=== PATIENT | male | born 1970 | race Caucasian/White ===

== ENCOUNTER → 2017-09-28 08:58 | Outpatient (CLI) | payer MEDICARE, SELFPAY ==
[2017-09-28 10:07] LABS: Absolute Neutrophil Count 3.1 X10^3/uL (2.0-7.7); Basophil# 0.03 X10^3/uL; Basophil% 0.6 % (0-1); Eosinophils% 7.6 % (0-5); Hematocrit 44.9 % (40-54); Hemoglobin 14.8 g/dl (13.0-16.5); Lymphocyte % 22.8 % (19-41); Mean Corpuscular Hgb 30.7 pg (27.0-32.0); Mean Corpuscular Volume 93.2 fL (80-94); Mean Platelet Vol. 9.1 fl (6.2-12.0); Monocyte# 0.51 X10^3/uL; Monocyte% 9.7 % (0-10); Neutrophil # 3.11 X10^3/uL (2.7-7.7); Neutrophil % 59.1 % (47-70); Platelet Count 332 K/mm3 (150-450); RBC Distribution Width SD 43.3 fl (35.1-43.9); Red Blood Count 4.82 M/mm3 (4.6-6.2); White Blood Count 5.3 K/mm3 (4.4-11.0)
[2017-09-28 10:16] LABS: POSITIVE COUNT NO; POSITIVE DIFFERENTIAL NO; POSITIVE MORPHOLOGY NO
[2017-09-28 10:49] LABS: Hemoglobin A1c 7.2 % (4.2-6.3)
[2017-09-28 10:53] LABS: AST(SGOT) 15 U/L (15-37); Alanine Aminotransfer ALT/SGPT 34 U/L (16-61); Albumin, Serum 3.7 g/dL (3.2-5.0); Alkaline Phosphatase 86 U/L (45-117); Anion Gap 7 (5-15); BUN 11 mg/dL (7-18); Calcium,Total 9.3 mg/dL (8.5-10.1); Chloride 104 mmol/L (98-107); Cholesterol 125 mg/dL (200); Creatinine, Serum 0.91 mg/dL (0.70-1.30); EST Glomerular Filtration Rate 93 mL/min (>60); Est Glom Filt Rate - Afr Amer 113 mL/min (>60); Globulin 3.8 g/dL (2.2-4.2); Glucose 118 mg/dL (74-106); High Density Lipoprotein 32 mg/dL; Potassium 4.5 mmol/L (3.5-5.1); Protein, Total 7.5 g/dL (6.4-8.2); Sodium Level 140 mmol/L (136-145); T4 Free Direct 1.09 ng/dL (0.76-1.46); Thyroid Stim Hormone (TSH) 2.53 uIU/mL (0.358-3.74); Triglycerides 109 mg/dL; Very Low Density Lipoprotein 22 mg/dL (5-40)
== END ==
PROVIDERS: Family Provider Nurse Practitioner Family; PCP Nurse Practitioner Family; Visit Provider Nurse Practitioner Family
DX: I10 Essential (primary) hypertension (principal); E78.5 Hyperlipidemia, unspecified; E03.9 Hypothyroidism, unspecified; E11.9 Type 2 diabetes mellitus without complications
CPT/HCPCS: 36415; 80053; 80061; 83036; 84439; 84443; 85025

== ENCOUNTER → 2019-08-08 | Outpatient (CLI) | payer MEDICAID, SELFPAY ==
[2019-07-27 13:54] VITALS: BMI 32.5
--- NOTE | 2019-08-08 16:50 | STRESSREP_ITS ---
Stress Test Report Pharmacologic myocardial perfusion stress test. 49-year-old man with a history of previous myocardial infarction and stenting to the left anterior descending artery. Stress protocol: Resting EKG demonstrates normal sinus rhythm with a rate of 76 bpm normal intervals are noted resting blood pressures 128/80 mmHg. 0.4 mg of regadenoson was infused per usual protocol followed by rapid venous saline flush injection continuous traffic monitor specialist was performed. The maximum heart rate attained was 104 bpm which was 61% of maximum predicted heart rate the maximum workload was 1 metabolic equivalent. At rest there were no ST or T wave changes noted suggest abnormal flow reserve at peak infusion nonspecific ST-T wave changes are noted suggest abnormal flow reserve. Resting blood pressures 128/80 with a final blood pressure 130/70 mmHg. Myocardial perfusion protocol. 14.5 mCi of technetium 99m sestamibi was injected at rest. 0.4 mg of r egadenoson was infused per usual protocol peak infusion 44.5 mCi of technetium 99m sestamibi was injected stress images were obtained stress and rest images were reconstructed and compared in the short axis vertical long horizontal long axis. Gated images were also obtained Perfusion SPECT analysis: Review of the stress images demonstrate a medium size zone in the mid anterior wall extending to the apex with reduced perfusion. The resting images demonstrate improved perfusion around this area with a minimal amount in the apex which remains with reduced perfusion. The above is suggestive of anterior apical ischemia with a small area of previous apical infarct. The rest of the esquivel appear to be well perfused. Conclusion: Abnormal pharmacologic myocardial perfusion stress test with evidence of anterior apical ischemia noted. Preserved ejection fraction.
== END | disposition home or self-care (01) ==
LOC: CVS 06:14
PROVIDERS: PCP Nurse Practitioner Family; Referring Provider Physician Assistant Medical; Visit Provider Physician Assistant Medical
DX: I25.10 Atherosclerotic heart disease of native coronary artery without angina pectoris (principal)
CPT/HCPCS: 78452; 93017; A9500; A4216; J2785

== ENCOUNTER → 2019-09-02 11:45 | Outpatient (CLI) | payer MEDICARE, MEDICAID, SELFPAY ==
[2019-07-27 13:54] VITALS: BMI 32.5
[2019-09-02 12:16] LABS: Absolute Lymphocyte Count 1.52 X10^3/uL (0.83-4.51); Absolute Neutrophil Count 3.1 X10^3/uL (2.0-7.7); Basophil# 0.04 X10^3/uL; Basophil% 0.7 % (0-1); Eosinophil# 0.36 X10^3/uL; Eosinophils% 6.4 % (0-5); Hematocrit 45.6 % (40-54); Hemoglobin 15.2 g/dL (13.0-16.5); Lymphocyte # 1.52 X10^3/ul (4.0); Lymphocyte % 27.1 % (19-41); Mean Corp Hgb Conc 33.3 g/dL (32-36); Mean Corpuscular Hgb 30.4 pg (27.0-32.0); Mean Corpuscular Volume 91.2 fL (80-94); Mean Platelet Vol. 8.9 fl (6.2-12.0); Monocyte# 0.62 X10^3/uL; Monocyte% 11.1 % (0-10); NRBC Flagged by Analyzer 0 % (0-5); Neutrophil # 3.06 X10^3/uL (2.7-7.7); Neutrophil % 54.5 % (47-70); Platelet Count 285 K/mm3 (150-450); RBC Distribution Width CV 12.6 % (11.6-14.6); White Blood Count 5.6 K/mm3 (4.4-11.0)
[2019-09-02 12:37] LABS: Anion Gap 6 (5-15); BUN 11 mg/dL (7-18); BUN/Creat Ratio 11.9 RATIO (10-20); Calcium,Total 8.8 mg/dL (8.5-10.1); Chloride 104 mmol/L (98-107); Creatinine, Serum 0.92 mg/dL (0.70-1.30); EST Glomerular Filtration Rate 92 mL/min (>60); Est Glom Filt Rate - Afr Amer 111 mL/min (>60); Glucose 218 mg/dL (74-106); Potassium 4.2 mmol/L (3.5-5.1); Sodium Level 134 mmol/L (136-145)
[2019-09-17 09:20] LABS: Prothrombin Time Fingerstick 11.2 SEC (11.9-14.4)
== END ==
PROVIDERS: Physician Assistant Medical; PCP Nurse Practitioner Family; Referring Provider Internal Medicine Cardiovascular Disease; Visit Provider Internal Medicine Cardiovascular Disease
DX: I25.10 Atherosclerotic heart disease of native coronary artery without angina pectoris (principal); R94.39 Abnormal result of other cardiovascular function study
CPT/HCPCS: 36415; 36416; 80048; 85025; 85610

== ENCOUNTER → 2019-09-09 | Outpatient (CLI) | payer MEDICARE, SELFPAY ==
[2019-07-27 13:54] VITALS: BMI 32.5
--- NOTE | 2019-09-09 10:04 | RAD_ITS ---
STUDY: X-RAY CHEST REASON FOR EXAM: Male, 49 years old. CAD, abnormal stress test -- h/o heart attack TECHNIQUE: Frontal and lateral views of the chest. COMPARISON: None. FINDINGS: The lungs are clear and expanded. There is no demonstrated pleural abnormality. Normal size heart. Normal mediastinum and sandhya. Normal visualized pulmonary arteries. Normal visualized aortic arch and descending thoracic aorta. There are diffuse degenerative changes of the visualized thoracic spine. Normal visualized ribs, clavicles, and shoulders. There is no demonstrated abnormality of the visualized soft tissue structures of the upper abdomen. RAD/Chest PA and Lateral IMPRESSION: Degenerative changes, as described above. No demonstrated acute cardiopulmonary process. Electronically Signed: Yeimi Faust, at 14:23 EDT Tel , Service support ,
== END | disposition home or self-care (01) ==
PROVIDERS: PCP Nurse Practitioner Family; Referring Provider Physician Assistant Medical; Visit Provider Physician Assistant Medical
DX: I25.10 Atherosclerotic heart disease of native coronary artery without angina pectoris (principal); R94.39 Abnormal result of other cardiovascular function study
CPT/HCPCS: 71046

== ENCOUNTER 2019-09-12 08:16 | Day surgery (SDC) | payer MEDICARE, SELFPAY ==
[2019-07-27 13:54] VITALS: BMI 32.5
[2019-09-09 11:52] VITALS: BMI 34.4
[2019-09-12] VITALS (13 sets, daily range): BP systolic 138–166; BP diastolic 73–89; PULSE 69–89; RESP 16–18; TEMP 36.4–36.9; O2SAT 96–99; BMI 34.2; BMI 34.3
--- NOTE | 2019-09-12 08:56 | HP.PCM_ITS ---
History and Physical Date of Admission: 09/12/19 History of Present Illness Details: CAL CHRISTOPHER, is a 49 M who presents to the [facility] today for a heart catheterization after an abnormal stress test on 08/08/2019. He has a history of coronary artery disease, myocardial infarction with stenting to his mid LAD, distal LAD and circumflex artery. Ejection fraction at time of infarct was noted to be 30% and has improved to 60% with an echocardiogram in 2015. He also has a history of hypertension, hyperlipidemia and diabetes. He denies chest, arm, jaw, or neck discomfort. His exercise tolerance is stable. He denies symptoms of palpitations, lightheadedness, dizziness, near syncope, or syncopal episodes. He denies edema or claudication issues. He denies orthopnea, PND, fever, chills, blood in urine, blood in stool, myalgia, or unexplainable fatigue. He does acknowledge shortness of breath with exertion. This is not new or worsening. This typically resolves with rest. Intake Vital Signs: See EMR Intake Visit Reasons: [facility] Travel Freight And Passenger Agent Required: No Accompanied by: None Is patient in pain?: No Allergies Penicillins Allergy (Verified 10/26/18 12:17) Rash Medications See EMR [facility] Medical History Essential (primary) hypertension (Chronic) Mixed hyperlipidemia (Chronic) Atherosclerotic heart disease of [place] coronary artery without angina pectoris (Chronic) Old myocardial infarction (Chronic 03/20/09) COPD (chronic obstructive pulmonary disease) (Chronic) Obesity (Chronic) Type 2 diabetes mellitus (Chronic) Surgical History History of coronary artery stent placement (Resolved 03/20/09) Family History Father Myocardial infarction Mother Diabetes Hypertension Other CVA (cerebral vascular accident) Heart disease Hyperlipidemia Sudden cardiac Social History (Updated 07/27/19 @ 14:22 by YANG Astudillo) Smoking Status: Former smoker alcohol intake: never substance use type: does not use caffeine: Yes Type: carbonated beverages Number of servings: 4 ROS Const Const: Negative for fatigue, weakness, fever(s) or headache(s) Eyes Eyes: Negative for blind spots, loss of peripheral vision or transient loss of vision ENT ENT: Negative for headache(s), dizziness, tinnitus or Nosebleed/epistaxis Cardio Chest Pain: No Palpitations: No Edema: None Muscle aches with walking: None Resp Respiratory: Positive for SOB with activity. Negative for SOB at rest, SOB orthopnea\SOB lying down or Cough GI GI: Negative nausea, vomiting, heartburn or vomiting blood/hematemesis : Negative for hematuria Musc Musc: Negative for muscle aches/ myalgia Neuro Neuro: Negative for dizziness, lightheadedness, near syncope, syncope, orthostatic symptoms, headache(s) or weakness Mason Hematologic/Lymphatic: Negative for easy bleeding Endo Endo: Negative for fatigue Cardiology Exam Const Appearance: cooperative, no acute distress and well developed Orientation: alert, awake and oriented x3 Head Head: normocephalic and atraumatic Mouth: moist mucous membranes Eyes General: appearance normal, both eyes and all related structures Conjunctivae: conjunctivae normal Pupils: PERRL EOM: EOM intact bilaterally Neck Neck: normal visual inspection, no lymphadenopathy and no JVD Carotids: Negative bruit Neck Mass: Negative Neck mass Chest Chest inspection: normal inspection of the chest, symmetric chest movement and midline sternotomy incision Auscultation: Bilateral: Clear to Auscultation Cardio Palpation: normal PMI Rate: regular rate Rhythm: regular rhythm Heart sounds: S1 normal and S2 normal; negative rub, gallop or murmur GI GI: normal to inspection, soft, no hepatosplenomegaly and bowel sounds present; negative tender Neuro General: alert, awake, oriented x3, CN's II-XI intact bilaterally and moves all extremities Extremities Pulses: Normal: Right Posterior Tibial Pulse, Left Posterior Tibial Pulse, Right Radial Pulse, Left Radial Pulse Lower Extremity Edema: None: Bilateral Psych Psychological: normal affect Assessment & Plan 1. Atherosclerosis of [place] coronary artery of [place] heart without angina pectoris I25.10 PCI-ROMAN-Mid LAD w/ 3.0 x 28 mm Promus Stent, ROMAN-Distal LAD w/ 2.5 x 28 mm Promus Stent, ROMAN-Mid Ramus w/ 2.5 x 23 mm Promus Stent 03/20/2009 After patient's office visit on 07/27/2019 he underwent a nuclear stress test on 08/08/2019 due to being greater than 5 years from previous stress test. This was considered be an abnormal pharmacological marker perfusion stress test with evidence anterior apical ischemia and showed a preserved ejection fraction. Due to his cardiac history and abnormal stress test, he will proceed with a left heart catheterization for further evaluation. Based on results, further recommendation of be made. 2. Essential hypertension I10 Plan Blood pressure is well controlled on current medications, we do not recommend any changes at this time. He was encouraged to monitor his blood pressure on a routine basis to guide treatment. 3. Mixed hyperlipidemia E78.2 Plan Patient will continue with high intensity statin. He states that these are managed by his primary care doctor. Thank you for allowing us to participate in the patients plan of care, if you have any questions please do not hesitate to call. This note was generated using a voice recognition system and there may be incorrect words, spelling or punctuation that were not noted when reviewing the office note prior to saving.
--- NOTE | 2019-09-12 10:13 | CL.D_ITS ---
Patient Name: CAL CHRISTOPHER Study Date: 09/12/2019 Performing: Mario Wiseman MD Ht: 70.86 inches 180 cm : 1970 Wt: 246.92 lbs 112 kg Age: 49 Gender: male BSA: 2.3 PROCEDURE(S) PERFORMED [id number]/COR/LV [id number]-[id number] W OR WO PTCA, SINGLE CORONARY ARTERY CLINICAL PROFILE AND INDICATIONS Indications: Suspected CAD Heart Failure: None Stress/Imaging Date: 08/08/2019Stress Test with SPECT MPI: Positive High Risk CAD Presentations: Unstable angina. CONCLUSIONS Severe in-stent stenosis in the mid LAD stent with patent distal LAD stent, patent ramus intermedius stent, severe disease noted in a small circumflex artery, and a patent right coronary artery system RECOMMENDATIONS Referred for immediate PCI DESCRIPTION OF PROCEDURE The patient arrived to the procedure lab. The risks and benefits of the procedure as well as a full d escription of our services here and current unavailability of surgical backup were fully explained to the patient and/or their significant other prior to the catheterization. The Timeout was completed, verifying the correct patient and procedure. The patient's procedural site was prepped and draped in the usual fashion. Local anesthetic was given subcutaneously to right radial region with Lidocaine 2% . Using a modified Seldinger technique, arterial access was obtained via the right radial artery, a 6 Fr sheath was inserted. Right Coronary Artery selective angiography was then performed in multiple v iews using a 5 Fr. 4.0 [place] catheter. Left Coronary Artery selective angiography was performed in mu ltiple views using a 5 Fr. 4.0 [place] catheter. Left Ventriculography was performed in ROME projection using a 5 Fr. Pigtail catheter. LV to AO pullback pressures were then recorded. CORONARY ANGIOGRAPHY DOMINANCE: Right Dominant LEFT HEART ASSESSMENT Left Ventricular Ejection Fraction: by LV Gram 60 % Normal LV wall motion Normal Left Ventricular systolic function LEFT MAIN: Angiographically normal LEFT ANTERIOR DESCENDING ARTERY: MID LAD: Instent restenosis 85 %, Instent restenosis distal 85 % DISTAL LAD: Previously placed stent is patent CIRCUMFLEX ARTERY: MID CIRC: Diffusely diseased up to 75 % RAMUS: Previously placed stent is patent RIGHT CORONARY ARTERY: Mild luminal irregularities less than 30% COMPLICATIONS PROCEDURE MEDICATIONS Versed 1 mg IV Fentanyl 50 mcg IV Versed 1 mg IV Baby Aspirin (81mg) 1 Tabs PO @ 09/12/2019 08:32:13 Heparin diluted in 23cc Heparinized saline. Patient given 10cc IA of this solution. 09/12/2019 09:37: 19 Heparin 8000 unit(s) IV 09/12/2019 09:54:28 Plavix 75 mg PO 09/12/2019 08:32:18 Verapamil 2.5mg, Ntg 100mcgs, 2000 units of Heparin diluted in 23cc Heparinized saline. Patient give n 10cc IA of this solution. 09/12/2019 09:37:19 SUMMARY OF HEMODYNAMIC DATA Time AIR REST ECG 08:52:09 AO 141/97 (115) SA 09:39:09 AO 124/92 (109) 09:40:29 LV 140/15, 20 09:47:30 LV 139/13, 18 09:47:36 LV 138/19, 24 09:48:09 LVp 140/21, 25 09:48:12 AOp 138/79 (104) 09:48:17 AO 168/97 (127) 10:06:01 ECG 10:11:31 Signed By Mario Wiseman MD On 09/12/2019 10:12:20 AM Mario Wiseman MD
[2019-09-12] MEDS: 0.9% Normal Saline 1,000 ML 100 ML IV (10:35)
--- NOTE | 2019-09-12 11:00 | CL.I_ITS ---
Patient Name: CAL CHRISTOPHER Study Date: 09/12/2019 Performing: Kay Rivera MD Ht: 71 inches 180 cm : 1970 Wt: 247.2 lbs 112 kg Age: 49 Gender: male BSA: 2.3 PROCEDURE(S) PERFORMED [id number] W OR WO PTCA, SINGLE CORONARY ARTERY CLINICAL PROFILE AND CO-MORBIDITIES Indications: Suspected CAD Heart Failure: None Stress/Imaging Date: 08/08/2019 Stress Test with SPECT MPI: Positive High Risk CAD Presentations: Unstable angina. CONCLUSIONS Successful ROMAN to mLAD RECOMMENDATIONS ASA Indefinitley Plavix for at least 12 months Follow up with Dr. Wiseman DESCRIPTION OF PROCEDURE The patient arrived to the procedure lab. The risks and benefits of the procedure as well as a full d escription of our services here and current unavailability of surgical backup were fully explained to the patient and/or their significant other prior to the catheterization. The Timeout was completed, verifying the correct patient and procedure. The patient's procedural site was prepped and draped in the usual fashion. Local anesthetic was given subcutaneously to right radial region with Lidocaine 2% Using a modified Seldinger technique,arterial access was obtained via the right radial artery, a 6Fr sheath was inserted. Right Coronary Artery selective angiography was then performed in multiple view s using a 5 Fr. 4.0 [place] catheter. Left Coronary Artery selective angiography was performed in multi ple views using a 5 Fr. 4.0 [place] catheter. Left Ventriculography was performed in ROME projection usi ng a 5 Fr. Pigtail catheter. LV to AO pullback pressures were then recorded.The images were reviewed and options discussed. A decision was then made to proceed with an Intervention, IVUS o r other adjunct procedure. XB 3.0 Guide catheter was inserted and engaged into the LCA. BMW Guide wire was advanced to the L AD. 2.0x12 Emerge Balloon catheter was advanced across lesion in the LAD, mid. PTCA balloon inflated at 14 atms for 30 secs. PTCA balloon inflated at 12 atms for 15 secs. PTCA balloon inflated at 12 jos s for 13 secs. 3.0x38 Synergy Drug Eluting stent was advanced across the lesion in the LAD, mid. Milagros ogram performed pre stent deployment. Angiogram performed post stent deployment. Angiogram performed post stent deployment. The arterial sheath was pulled and a TR Band was applied for hemostasis INTERVENTION INFORMATION LESION SITE: LAD (Mid) Lesion Complexity: High/C, chronic total occlusion: No, lesion at bifurcation: No, thrombus present: No, lesion length: 36 mm, culprit lesion: Yes, Previously treated lesion: Yes, In-stent restenosis: Y es, Timeframe of previous treatment: Time unknown Pre Stenosis: 80 % Pre intervention LEONOR flow: 3 PROCEDURE: Drug Eluting Stent with pre dilatation. Post Stenosis: 0 % Post intervention LEONOR flow: 3 Lesion Devices: Cardinal 6 Fr XB3.0 100cm Guide Catheter Boyce .014 BMW [place] Straight 190cm Uli Sci EMERGE MR 2.00x12 BALLOON Uli Sci Synergy MR ROMAN 3.00x38 COMPLICATIONS No Complications PROCEDURE MEDICATIONS Versed 1 mg IV Fentanyl 50 mcg IV Versed 1 mg IV Baby Aspirin (81mg) 1 Tabs PO @ 09/12/2019 08:32:13 Heparin diluted in 23cc Heparinized saline. Patient given 10cc IA of this solution. 09/12/2019 09:37: 19 Heparin 8000 unit(s) IV 09/12/2019 09:54:28 Plavix 75 mg PO 09/12/2019 08:32:18 Verapamil 2.5mg, Ntg 100mcgs, 2000 units of Heparin diluted in 23cc Heparinized saline. Patient give n 10cc IA of this solution. 09/12/2019 09:37:19 SUMMARY OF HEMODYNAMIC DATA Time AIR REST ECG 08:52:09 AO 141/97 (115) SA 09:39:09 AO 124/92 (109) 09:40:29 LV 140/15, 20 09:47:30 LV 139/13, 18 09:47:36 LV 138/19, 24 09:48:09 LVp 140/21, 25 09:48:12 AOp 138/79 (104) 09:48:17 AO 168/97 (127) 10:06:01 ECG 10:11:31 Signed By Kay Rivera MD On 09/12/2019 10:59:26 Kay Rivera MD
--- NOTE | 2019-09-12 11:13 | EKG12_ITS ---
Test Reason : Blood Pressure : / mmHG Vent. Rate : 079 BPM Atrial Rate : 079 BPM P-R Int : 166 ms QRS Dur : 082 ms QT Int : 368 ms P-R-T Axes : 039 -22 023 degrees QTc Int : 421 ms Normal sinus rhythm Low voltage QRS Anteroseptal infarct , age undetermined Abnormal ECG Confirmed by ANDREA NAJERA, BRANDON ([id number]), newspaper editor managing SUJATHA GRUBBS ([id number]) on 09/14/2019 9:53:23 AM Referred By: Mario Wiseman Confirmed By:BRANDON MENDEZ MD
[2019-09-12 11:35] LABS: Bedside Glucose 242 mg/dL (70-110)
[2019-09-12] MEDS: Lisinopril 10 MG Tablet PO (12:33)
[2019-09-12] MEDS: Metoprolol(XL)Succ 100 MG Tablet PO (12:33)
--- NOTE | 2019-09-12 14:43 | CRPHASE1_ITS ---
Patient Communication PHII Cardiac Rehab Discussed with Patient:: Yes Guide to Cardiac Rehab Given to Patient:: Yes Cardiac Rehab Facility Choice List Given to Patient:: Yes - pt chooses [facility] Choice Program [facility] CR PHII:: Communication Given to CR, Refer to [facility] Machine Operator:: Mario Wiseman Phase II Cardiac Rehab:: Yes Sessions:: 36 sessions - 3 days/wk, 12 weeks Risk Factors/Lifestyle Hx Obesity: Yes Height: 5 ft 11 in Weight:: 111.584 kg BMI: 34.2 Family History: Family History (Last Reviewed 07/27/19 @ 14:11 by YANG Astudillo) Father Myocardial infarction Mother Diabetes Hypertension Other CVA (cerebral vascular accident) Heart disease Hyperlipidemia Sudden cardiac Phase I Education Given On:: Pandora, Nutrition, Antiplatelet medication, CHF, Smoking cessation, Diabetes - Type I, Diabetes - Type II Issues Affecting Care:: None Hospital Course Cardiac Cath Date:: 09/12/19 Cardiac Rehabilitation Info Cardiac Rehabilitation Program Information: Cardiac Rehabilitation is important for patients like you who are recovering from a heart problem. Cardiac rehabilitation programs are recognized as integral to the continued care of the patient with coronary heart disease. The cardiac rehabilitation program is designed to optimize a patient's physical, psychological, and social functioning. Health client care consultant work in cardiac rehabilitation programs and assist you with getting the treatments you need to get stronger and healthier - like exercise, healthy eating habits, and medications. Cardiac rehabilitation has been show to help people with heart problems live longer and have better life enjoyment than people who do not go to cardiac rehabilitation. Please contact the Cardiac Rehabilitation Program at [facility] at in two weeks if you have not heard from them.
--- NOTE | 2019-09-12 14:46 | CRPH1.INSTRU ---
General Education CAD and cardiac anatomy and function:: Patient communicates acknowledgment Explanation of diagnoses and procedures:: Patient communicates acknowledgment Sign/Symptoms of VT:: Patient communicates acknowledgment Antiplatelet therapy: Patient communicates acknowledgment Proper use of NTG-SL: Not instructed Emergency procedures and activation of EMS: Patient communicates acknowledgment Compliance of all prescribed medications: Patient communicates acknowledgment Smoking Nicotine/Smoking Response Code:: Patient communicates acknowledgment Dyslipidemia Dyslipidemia Response Code:: Patient communicates acknowledgment Overweight/Obesity Patient Overweight/Obesity Risk Factors Are:: Obesity - > or = 30 Recommendations Include:: Weight loss of 5-10%, Reduced calorie diet, Exercise 5-7 times/week Overweight/Obesity:: Patient communicates acknowledgment Hypertension Hypertension:: Patient communicates acknowledgment Heart Disease Heart Disease Response Code:: Patient communicates acknowledgment Diabetes Diabetes:: Patient communicates acknowledgment Metabolic Syndrome Metabolic Syndrome Response Code:: Patient communicates acknowledgment Sedentary Sedentary Response Code:: Patient communicates acknowledgment Stress Stress Response Code:: Patient communicates acknowledgment
--- NOTE | 2019-09-12 16:14 | PCM.DC.CCA ---
Discharge Diet: Low fat/ Low Cholesterol Discharge Activity: Return to Normal Activity May shower in (days): 1 - No tub baths for 5 days May resume sexual activity in: 1-2 weeks Lifting Restrictions: Do not lift anything greater than 10 pounds for 3 days Call your doctor if your incision/area has: Continuous Slow Oozing, Sudden Increased Bleeding, Increased Pain/ Swelling, Increased Redness, Foul Smelling Discharge, Swelling at the incision site Call your doctor if you observe: Fever of 101 or Higher, Shortness of breath, Chest pain Remove Dressing in (days):: 1 Cleanse incision/area with: Soap & Water Additional Instructions: You will continue with Aspirin and Plavix therapy. The goal is to remain on Plavix therapy for at least 1 year. If anyone asks you to stop this medication, please call the [facility] Office at [phone], first. Your Aspirin has been changed to 81mg (Baby Aspirin) daily. You are scheduled for an office appointment in approximately 4 weeks. We will call you with such date and time. If there are any questions or concerns at any point, please call the [facility] at [phone]. Allergies/Adverse Reactions: Allergies Penicillins Allergy (Verified 10/26/18 12:17) Rash Medications to take at Discharge atorvastatin 80 mg tablet 80 mg PO QDAY 08/18/17 clopidogrel 75 mg tablet 75 mg PO QDAY tab 08/18/17 levothyroxine 25 mcg tablet 25 mcg PO QDAY tab 08/18/17 lisinopril 10 mg tablet 10 mg PO QDAY 08/18/17 metoprolol succinate 100 mg tablet,extended release 24 hr 100 mg PO QDAY tab 08/18/17 pioglitazone 45 mg tablet 45 mg PO QDAY 08/20/17 insulin glargine 100 unit/mL subcutaneous solution 55 unit SC DAILY ml 02/18/18 insulin lispro 100 unit/mL subcutaneous solution See Protocol SC DAILY 30 Days #20 ml 02/18/18 Aspirin E.C. [Ecotrin] 81 mg PO DAILY@0800 tab 09/13/19 Orders to be completed after discharge: Phase II, Outpatient Cardiac Rehab Location: None Selected Primary Care Physician: Cornelius Mccarthy NP-C [Primary Care Provider] - Test Results: Test results from this visit will be discussed in further detail at your follow-up appointment, if applicable. Please Follow Up With: [facility] will call you Proposed Discharge Date: 09/13/19 Cardiac Rehabilitation Info Cardiac Rehabilitation Program Information: Cardiac Rehabilitation is important for patients like you who are recovering from a heart problem. Cardiac rehabilitation programs are recognized as integral to the continued care of the patient with coronary heart disease. The cardiac rehabilitation program is designed to optimize a patient's physical, psychological, and social functioning. Health medication care manager work in cardiac rehabilitation programs and assist you with getting the treatments you need to get stronger and healthier - like exercise, healthy eating habits, and medications. Cardiac rehabilitation has been show to help people with heart problems live longer and have better life enjoyment than people who do not go to cardiac rehabilitation. Please contact the Cardiac Rehabilitation Program at [facility] at in two weeks if you have not heard from them.
[2019-09-12] MEDS: Insulin Lispro 100 UNIT/ML INSULN.PEN SC ×2 (16:39→21:28)
[2019-09-12 16:45] LABS: Bedside Glucose 276 mg/dL (70-110)
[2019-09-12] MEDS: Atorvastatin Calcium 80 MG Tablet PO (21:29)
[2019-09-12 21:56] LABS: Bedside Glucose 181 mg/dL (70-110)
[2019-09-13 02:54] VITALS: PULSE 69
[2019-09-13 03:30] VITALS: BP 110/72; PULSE 74; RESP 18; TEMP 36.6; O2SAT 98
[2019-09-13 03:40] VITALS: O2SAT 98
[2019-09-13] MEDS: Levothyroxine 25 MCG TABLET PO (06:40)
[2019-09-13] MEDS: Insulin Lispro 100 UNIT/ML INSULN.PEN SC (06:40)
[2019-09-13 06:56] LABS: Bedside Glucose 158 mg/dL (70-110)
[2019-09-13 07:03] VITALS: PULSE 71
--- NOTE | 2019-09-13 08:29 | PCM.PN.BLA ---
Progress Note Aspirin at discharge? Aspirin 81 mg p.o. daily Antiplatelet therapy at discharge? Plavix 75 mg p.o. daily YULISA/ARB at discharge? Lisinopril 10 mg p.o. daily Statin at discharge? Atorvastatin 80 mg p.o. daily Beta-adonay at discharge? Metoprolol succinate ER 100 mg p.o. daily
--- NOTE | 2019-09-13 08:59 | PCM.PN.CARD ---
Subjectve: Patient seen and evaluated. Appears to be doing well. No complaints. Objective: Vital Signs Temp Pulse Resp BP Pulse Ox 97.8 F 74 18 110/72 98 09/13/19 03:30 09/13/19 03:30 09/13/19 03:30 09/13/19 03:30 09/13/19 03:40 Oxygen Delivery Method Room Air Weight: 246 lb 0.01 oz Body Mass Index (BMI) 34.2 Intake and Output for Last 24 Hours 09/11/19 09/12/19 09/13/19 23:59 23:59 23:59 Intake Total 1088.33 / 1088.33 Balance 1088.33 / 1088.33 General: Awake, Alert, Oriented x 3 HEENT: PERRL, EOMI, Sclera Non Icteric Neck: Supple, Good ROM, No Lymph Node Enlargement Lungs: Clear to auscultation Cardiovascular: Regular Rhythm, Normal S1, Normal S2, No Murmurs, No Rubs, No Gallops Vascular: No Carotid Bruits, Normal Femoral Pulses, Normal Radial Pulses, Normal Dorsalis Pedal Pulse, Normal Posterior Tibial Pulses Abdomen: Bowel Sounds Present, Soft, Non Tender, No HSM, No Organomegaly Extremities: No Cyanosis, No Clubbing, No edema Musculoskeletal: No Erythema Skin: No Rashes Lymphatic: No Lymph Node Enlargement Neurological: No Focal Motor or Sensory Deficit Rhythm: EKG: ECHO: Stress Test: Cardiac Cath: PCI: CT Surgery: Holter monitor: EPS: PPM: CXR: Chest CT Scan: Medical Necessity - Tobacco Use Smoking Status: Former smoker Assessment/Plan Patient doing well status post angioplasty and stenting of the left anterior descending artery. No chest pain overnight and EKG does not demonstrate any changes. Patient can be followed up as an outpatient.
[2019-09-13 09:30] VITALS: BP 129/74; PULSE 84; RESP 16; TEMP 36.4; O2SAT 98
== END 2019-09-13 09:20 | disposition home or self-care (01) ==
LOC: CLSP 09:40 → PCU 14:10
PROVIDERS: PCP Nurse Practitioner Family; Referring Provider Internal Medicine Cardiovascular Disease; Visit Provider Internal Medicine Cardiovascular Disease
DX: I25.110 Atherosclerotic heart disease of native coronary artery with unstable angina pectoris (principal); I25.2 Old myocardial infarction; Z95.5 Presence of coronary angioplasty implant and graft; E78.2 Mixed hyperlipidemia; E11.9 Type 2 diabetes mellitus without complications; I10 Essential (primary) hypertension; J44.9 Chronic obstructive pulmonary disease, unspecified; E66.9 Obesity, unspecified; Z68.34 Body mass index [BMI] 34.0-34.9, adult; Z87.891 Personal history of nicotine dependence
CPT/HCPCS: 82962; 92928; 93005; 93458; 99152; 99153; 99406; J7030; J7040; Q9967; C1725; C1769; C1874; C1887; C1894; C9600

== ENCOUNTER → 2020-02-14 | Outpatient (CLI) | payer MEDICAID, SELFPAY ==
[2019-09-12 14:45] VITALS: BMI 34.2
[2020-02-14 14:15] VITALS: BMI 34.2
[2020-02-14 17:18] LABS: AST(SGOT) 17 U/L (15-37); Alanine Aminotransfer ALT/SGPT 47 U/L (16-61); Albumin, Serum 4.2 g/dL (3.2-5.0); Alkaline Phosphatase 97 U/L (45-117); Bilirubin, Direct 0.16 mg/dL (0.00-0.30); Cholesterol 239 mg/dL (200); High Density Lipoprotein 33 mg/dL; Protein, Total 8.2 g/dL (6.4-8.2); Triglycerides 270 mg/dL; Very Low Density Lipoprotein 54 mg/dL (5-40)
== END | disposition home or self-care (01) ==
PROVIDERS: PCP Family Medicine; Referring Provider Internal Medicine Cardiovascular Disease; Visit Provider Internal Medicine Cardiovascular Disease
DX: E78.2 Mixed hyperlipidemia (principal); I10 Essential (primary) hypertension; Z95.5 Presence of coronary angioplasty implant and graft
CPT/HCPCS: 36415; 80061; 80076

== ENCOUNTER → 2021-02-12 11:33 | Outpatient (CLI) | payer MEDICARE, SELFPAY ==
[2019-09-12 14:45] VITALS: BMI 34.2
== END ==
PROVIDERS: PCP Family Medicine; Referring Provider Physician Assistant Medical; Visit Provider Physician Assistant Medical
DX: E78.2 Mixed hyperlipidemia (principal)
CPT/HCPCS: 36415; 80061; 80076

== ENCOUNTER → 2021-02-14 15:19 | Outpatient (CLI) | payer OTHER, MEDICAID, SELFPAY ==
[2019-09-12 14:45] VITALS: BMI 34.2
[2021-02-14 16:13] LABS: AST(SGOT) 11 U/L (15-37); Alanine Aminotransfer ALT/SGPT 26 U/L (16-61); Albumin, Serum 2.8 g/dL (3.2-5.0); Alkaline Phosphatase 90 U/L (45-117); Bilirubin, Direct 0.14 mg/dL (0.00-0.30); Cholesterol 144 mg/dL (200); High Density Lipoprotein 34 mg/dL; Protein, Total 7.8 g/dL (6.4-8.2); Triglycerides 129 mg/dL; Very Low Density Lipoprotein 26 mg/dL (5-40)
== END ==
PROVIDERS: PCP Family Medicine; Visit Provider Physician Assistant Medical
DX: E78.2 Mixed hyperlipidemia (principal)
CPT/HCPCS: 80061; 80076